=== PATIENT | female | born 1965 | race African-American/Black ===

== ENCOUNTER 2021-06-19 20:34 | Emergency (ER) | payer SELFPAY ==
[2021-06-19 22:43] LABS: Absolute Lymphocytes (CBC) 1.9 K/uL (0.7-4.9); Basophils % 0.4 % (0-1.3); Hematocrit 35.2 % (36.0-45.0); Lymphocytes % 22.7 % (15.3-44.8); RBC Red Blood Cell Count 3.51 M/uL (3.86-4.86)
[2021-06-19 22:46] LABS: Protime INR 0.95
[2021-06-19] MEDS ORDERED: MORPHINE 2 MG/ML SYR ONE ×2 (22:46→23:17)
[2021-06-19] MEDS ORDERED: NA CHLORIDE 0.9% 1,000 ML ONE (22:46)
[2021-06-19 22:57] LABS: Albumin 4.6 g/dL (3.4-5.0); Bilirubin Direct 0.2 mg/dL (0-0.2); Bilirubin Total 0.4 mg/dL (0.2-1.0); Potassium 4.1 mmol/L (3.5-5.1); Protein, Total 9.5 g/dL (6.4-8.2)
[2021-06-19 23:12] LABS: Urine Blood Trace-intact (Negative); Urine Glucose Negative (Negative); Urine Protein Negative (Negative); Urine Specific Gravity 1.015 (1.005-1.030)
[2021-06-19 23:49] LABS: Urine Specific Gravity/Preg 1.015 (1.005-1.030)
[2021-06-20 00:03] LABS: Calcium Oxalate Crystals- Ur MODERATE (NONE SEEN); Urine Bacteria LOADED /HPF (<20); Urine Mucus 1+ /HPF (NONE SEEN)
[2021-06-20] MEDS ORDERED: ONDANSETRON 4 MG/2 ML VIAL ONE (00:18)
--- NOTE | 2021-06-20 00:45 | ER ---
Nurse's Notes [facility] Name: Nanci Michelle Age: 56 yrs Sex: Female : 1965 Arrival Date: 06/19/2021 Time: 20:35 Bed 13 Private MD: Diagnosis: Abdominal pain, unspecified;UTI/ Urinary tract infection, site not specified Presentation: 06/19 21:09 Chief complaint: Patient states: Abdominal pain, abdominal swelling, back pain, kg difficulty urinating and unable to urinate at times. x 1 month. Coronavirus screen: Vaccine status: Patient reports receiving the 1st dose of the Covid vaccine. Faustino \T\ Faustino At this time, the client does not indicate any symptoms associated with coronavirus-19. Ebola Screen: Patient negative for fever greater than or equal to 101.5 degrees Fahrenheit, and additional compatible Ebola Virus Disease symptoms Patient denies exposure to infectious person. Patient denies travel to an Ebola-affected area in the 21 days before illness onset. Initial Sepsis Screen: Does the patient meet any 2 criteria? No. Patient's initial sepsis screen is negative. Does the patient have a suspected source of infection? No. Patient's initial sepsis screen is negative. Risk Assessment: Do you want to hurt yourself or someone else? Patient reports no desire to harm self or others. Onset of symptoms is unknown. 21:09 Method Of Arrival: Wheelchair kg 21:09 Acuity: FELIX 3 kg Triage Assessment: 21:09 General: Appears uncomfortable, Behavior is calm, cooperative, appropriate for age, kg quiet. Pain: Complains of pain in back and abdomen. GI: Abdomen is distended. Historical: - Allergies: 21:13 No Known Allergies; kg - Home Meds: 21:13 None [Active]; kg - PMHx: 21:13 None; kg - PSHx: 21:13 section; kg - Immunization history:: Adult Immunizations not up to date, Client reports receiving the Faustino \T\ Faustino single-dose vaccine. Date received February 16, 2021. - Social history:: Smoking status: Patient denies any tobacco usage or history of. Patient uses alcohol, on a daily basis. Screenin:30 Abuse screen: Denies threats or abuse. Nutritional screening: No deficits noted. jb4 Tuberculosis screening: No symptoms or risk factors identified. Fall Risk None identified. Assessment: 21:30 General: Appears in no apparent distress. comfortable, Behavior is calm, cooperative, jb4 appropriate for age. Pain: Complains of pain in abdomen Pain radiates to back Pain currently is 10 out of 10 on a pain scale. Neuro: Level of Consciousness is awake, alert, obeys commands, Oriented to person, place, time, situation. Cardiovascular: Patient's skin is warm and dry. Respiratory: Airway is patent Respiratory effort is even, unlabored, Respiratory pattern is regular, symmetrical. GI: Abdomen is round distended, Bowel sounds present X 4 quads. Abdomen is tender to palpation X 4 quads. Abdomen is firm x4 quadrants Reports lower abdominal pain, upper abdominal pain. : Reports inability to void. EENT: No signs and/or symptoms were reported regarding the EENT system. Derm: Skin is intact, Skin is dry, Skin is normal, Skin temperature is warm. Musculoskeletal: Circulation, motion, and sensation intact. Range of motion: intact in all extremities. 22:30 Reassessment: Patient appears in no apparent distress at this time. Patient and/or jb4 family updated on plan of care and expected duration. Pain level reassessed. Patient is alert, oriented x 3, equal unlabored respirations, skin warm/dry/pink. 23:22 Reassessment: Patient appears in no apparent distress at this time. Patient and/or jb4 family updated on plan of care and expected duration. Pain level reassessed. Patient is alert, oriented x 3, equal unlabored respirations, skin warm/dry/pink. 23:53 Reassessment: Pt call for co nausea. Emesis bag given and LAYNE Esparza made aware. Can give dc2 Zofran 4mg ivp. When returned to room, pt had vomited 200ml greenish / yellowish contents. 06/20 01:26 Reassessment: Patient appears in no apparent distress at this time. Patient and/or jb4 family updated on plan of care and expected duration. Pain level reassessed. Patient is alert, oriented x 3, equal unlabored respirations, skin warm/dry/pink. Vital Signs: 06/19 21:09 BP 119 / 106; Pulse 114; Resp 20; Temp 97.9(TE); Pulse Ox 98% ; Weight 54.43 kg (R); kg Height 4 ft. 11 in. (149.86 cm); Pain 10/10; 23:15 BP 153 / 103; Pulse 95; Resp 16; Pulse Ox 100% on R/A; jb4 06/20 00:30 BP 142 / 105; Pulse 89; Resp 16; Pulse Ox 100% on R/A; jb4 01:00 BP 137 / 103; Pulse 86; Resp 16; Pulse Ox 100% on R/A; jb4 06/19 21:09 Body Mass Index 24.24 (54.43 kg, 149.86 cm) kg ED Course: 06/19 20:35 Patient arrived in ED. bp1 21:13 Triage completed. kg 21:13 Arm band placed on left wrist. kg 21:30 Patient has correct armband on for positive identification. Bed in low position. Call jb4 light in reach. Side rails up X 1. Pulse ox on. NIBP on. 21:47 Benedict Esparza PA is PHCP. cp 21:47 Augustus Patel MD is Attending Physician. cp 22:18 Micah Farfan, JAKE is Primary Nurse. jb4 23:01 XRAY Chest (1 view) In Process Unspecified. EDMS 23:41 CT Abd/Pelvis - IV Contrast Only In Process Unspecified. EDMS 06/20 00:45 Kemar Avelar MD is Referral Physician. cp 01:27 No provider procedures requiring assistance completed. IV discontinued, intact, jb4 bleeding controlled, No redness/swelling at site. Pressure dressing applied. Administered Medications: 06/19 22:25 Drug: NS 0.9% 1000 ml Route: IV; Rate: 1 bolus; Site: right antecubital; jb4 23:30 Follow up: Response: No adverse reaction; IV Status: Completed infusion; IV Intake: jb4 1000ml 22:25 Drug: morphine 2 mg Route: IVP; Site: right antecubital; jb4 23:00 Drug: morphine 2 mg Route: IVP; Site: right antecubital; jb4 23:30 Follow up: Response: No adverse reaction; Pain is decreased; RASS: Alert and Calm (0) jb4 06/20 00:04 Drug: Zofran (Ondansetron) 4 mg Route: IVP; Site: right antecubital; dc2 00:30 Follow up: Response: No adverse reaction 4 01:10 Drug: Rocephin (cefTRIAXone) 1 grams Route: IV; Rate: calculated rate; Site: right jb4 antecubital; 01:16 Follow up: Response: No adverse reaction; IV Status: Completed infusion jb4 Intake: 06/19 23:30 IV: 1000ml; Total: 1000ml. jb4 Outcome: 06/20 00:45 Discharge ordered by . cp 01:27 Discharged to home via wheelchair. jb4 01:27 Condition: stable 01:27 Discharge instructions given to patient, Instructed on discharge instructions, follow up and referral plans. medication usage, Demonstrated understanding of instructions, follow-up care, medications, Prescriptions given X 3. 01:30 Patient left the ED. jb4 Signatures: Dispatcher [employer] EDMS Benedict Esparza PA PA cp Bryson, James, RN RN jb4 Rere Tam Kristen, RN RN kg Mena Hoffmann RN RN dc2 Corrections: (The following items were deleted from the chart) 06/19 21:14 21:13 PSHx: None; kg kg
--- NOTE | 2021-06-20 00:45 | EDPHYS ---
Physician Documentation [facility] Name: Nanci Michelle Age: 56 yrs Sex: Female : 1965 Arrival Date: 06/19/2021 Time: 20:35 Bed 13 Private MD: ED Physician Augustus Patel HPI: 06/19 22:15 This 56 yrs old Black Female presents to ER via Wheelchair with complaints of Abdominal cp Pain, Back Pain, Abdominal Swelling. 22:15 The patient presents with abdominal pain that is diffuse, abdominal distention that is cp diffuse. Onset: The symptoms/episode began/occurred 1 month(s) ago. 22:15 The symptoms radiate to back. cp 22:15 Associated signs and symptoms: Pertinent positives: decreased urine output, Pertinent cp negatives: anorexia, blood in stools, chest pain, constipation, diarrhea, fever, vomiting. The symptoms are described as waxing/waning. Historical: - Allergies: 21:13 No Known Allergies; kg - Home Meds: 21:13 None [Active]; kg - PMHx: 21:13 None; kg - PSHx: 21:13 section; kg - Immunization history:: Adult Immunizations not up to date, Client reports receiving the Faustino \T\ Faustino single-dose vaccine. Date received February 16, 2021. - Social history:: Smoking status: Patient denies any tobacco usage or history of. Patient uses alcohol, on a daily basis. ROS: 22:25 Constitutional: Negative for body aches, chills, fever, poor PO intake. cp 22:25 Eyes: Negative for injury, pain, redness, and discharge. cp 22:25 Cardiovascular: Negative for chest pain, edema, palpitations. 22:25 Respiratory: Negative for cough, shortness of breath, wheezing. 22:25 Abdomen/GI: Positive for abdominal pain, abdominal distension. Exam: 22:30 Constitutional: The patient appears in no acute distress, alert, awake, cp non-diaphoretic, non-toxic, well developed, well nourished. 22:30 Head/Face: Normocephalic, atraumatic. cp 22:30 Eyes: Periorbital structures: appear normal, Conjunctiva: normal, no exudate, no injection, Sclera: no appreciated abnormality, Lids and lashes: appear normal, bilaterally. 22:30 ENT: External ear(s): are unremarkable, Nose: is normal, Mouth: Lips: moist, Oral mucosa: moist, Posterior pharynx: Airway: no evidence of obstruction, patent. 22:30 Chest/axilla: Inspection: normal, Palpation: is normal, no crepitus, no tenderness. 22:30 Cardiovascular: Rate: tachycardic, Rhythm: regular, Edema: is not appreciated, JVD: is not appreciated. 22:30 Respiratory: the patient does not display signs of respiratory distress, Respirations: normal, no use of accessory muscles, no retractions, labored breathing, is not present, Breath sounds: are clear throughout, no decreased breath sounds, no stridor, no wheezing. 22:30 Abdomen/GI: Inspection: distension, that is moderate, in the abdomen diffusely, Bowel sounds: active, all quadrants, Palpation: soft, in all quadrants, mild abdominal tenderness, in all quadrants, rebound tenderness, is not appreciated, involuntary guarding, is not appreciated. 22:30 Back: pain, that is mild, ROM is normal, CVA tenderness, is absent. 22:30 Neuro: Orientation: to person, place \T\ time. Mentation: is normal, Motor: moves all fours, strength is normal. Vital Signs: 21:09 BP 119 / 106; Pulse 114; Resp 20; Temp 97.9(TE); Pulse Ox 98% ; Weight 54.43 kg (R); kg Height 4 ft. 11 in. (149.86 cm); Pain 10/10; 23:15 BP 153 / 103; Pulse 95; Resp 16; Pulse Ox 100% on R/A; jb4 06/20 00:30 BP 142 / 105; Pulse 89; Resp 16; Pulse Ox 100% on R/A; jb4 01:00 BP 137 / 103; Pulse 86; Resp 16; Pulse Ox 100% on R/A; jb4 06/19 21:09 Body Mass Index 24.24 (54.43 kg, 149.86 cm) kg MDM: 06/19 21:58 Patient medically screened. cp 23:00 Differential diagnosis: appendicitis, bowel obstruction, cholecystitis, Cholelithiasis, cp non-specific abd pain, pancreatitis, Peptic Ulcer Disease, Perf. Duodenal Ulcer, Perf. Gastric Ulcer, urinary tract infection. 06/20 00:45 Data reviewed: vital signs, nurses notes, lab test result(s), radiologic studies, CT cp scan. 00:45 Counseling: I had a detailed discussion with the patient and/or guardian regarding: the cp historical points, exam findings, and any diagnostic results supporting the discharge/admit diagnosis, lab results, radiology results, the need for outpatient follow up, a family practitioner, a mark up designer, to return to the emergency department if symptoms worsen or persist or if there are any questions or concerns that arise at home. Response to treatment: the patient's symptoms have markedly improved after treatment, and as a result, I will discharge patient. Special discussion: Based on the patient's Hx, exam, and Dx evaluation, there is no indication for emergent surgery or inpatient Tx. It is understood by the patient/guardian that if the Sx's persist or worsen they need to return immediately for re-evaluation. 06/19 22:08 Order name: Basic Metabolic Panel; Complete Time: 23:08 cp 06/20 00:45 Interpretation: Normal except: NA 134; GLUC 109; GFR 56. cp 06/19 22:08 Order name: CBC with Diff; Complete Time: 23:08 cp 06/20 00:46 Interpretation: Normal except: RBC 3.51; HGB 11.9; HCT 35.2; MCV 100.5. cp 06/19 22:08 Order name: Hepatic Function; Complete Time: 23:08 cp 06/20 00:46 Interpretation: Normal except: AST 39; TP 9.5; GLOB 4.9; A/G 0.9. cp 06/19 22:08 Order name: Lipase; Complete Time: 23:08 cp 06/19 22:08 Order name: PT-INR; Complete Time: 23:08 cp 06/19 22:08 Order name: Ptt, Activated; Complete Time: 23:08 cp 06/19 22:08 Order name: XRAY Chest (1 view) cp 06/19 22:08 Order name: CT Abd/Pelvis - IV Contrast Only cp 06/19 22:08 Order name: Urine Microscopic Only; Complete Time: 00:45 cp 06/20 00:46 Interpretation: Normal except: UWBC 10-20; URBC 5-10; UBACT LOADED; SQEPI 5-10; CAOX cp MODERATE. 06/19 23:12 Order name: Urine Dipstick-Ancillary; Complete Time: 00:45 EDMS 06/20 00:46 Interpretation: Normal except: UKET 1+; UBLD Trace-intact; U NIT Positive; UESTR Trace. cp 06/19 23:13 Order name: Urine --Ancillary (enter results); Complete Time: 00:45 tt3 06/20 00:07 Order name: Urine Culture EDMS 06/19 22:08 Order name: IV Saline Lock; Complete Time: 22:26 cp 06/19 22:08 Order name: Labs collected and sent; Complete Time: 22:26 cp 06/19 22:08 Order name: Bladder Scanner: pre and post void; Complete Time: 23:24 cp 06/19 22:08 Order name: Urine Dipstick-Ancillary (obtain specimen); Complete Time: 23:13 cp 06/19 22:08 Order name: Urine Test (obtain specimen); Complete Time: 23:13 cp Administered Medications: 06/19 22:25 Drug: NS 0.9% 1000 ml Route: IV; Rate: 1 bolus; Site: right antecubital; 4 23:30 Follow up: Response: No adverse reaction; IV Status: Completed infusion; IV Intake: jb4 1000ml 22:25 Drug: morphine 2 mg Route: IVP; Site: right antecubital; jb4 23:00 Drug: morphine 2 mg Route: IVP; Site: right antecubital; jb4 23:30 Follow up: Response: No adverse reaction; Pain is decreased; RASS: Alert and Calm (0) [facility] 06/20 00:04 Drug: Zofran (Ondansetron) 4 mg Route: IVP; Site: right antecubital; wa2 00:30 Follow up: Response: No adverse reaction [facility] 01:10 Drug: Rocephin (cefTRIAXone) 1 grams Route: IV; Rate: calculated rate; Site: right [facility] antecubital; 01:16 Follow up: Response: No adverse reaction; IV Status: Completed infusion [facility] Disposition: 05:07 Co-signature as Attending Physician, Augustus Patel MD. [email or web address] Disposition Summary: 06/20/21 00:45 Discharge Ordered Location: Home cp Problem: new cp Symptoms: have improved cp Condition: Stable cp Diagnosis - Abdominal pain, unspecified cp - UTI/ Urinary tract infection, site not specified cp Followup: cp - With: Valentino, Kemar, MD - When: 2 - 3 days - Reason: Recheck today's complaints Discharge Instructions: - Discharge Summary Sheet em - Abdominal Pain, Adult cp - Urinary Tract Infection, Adult cp Forms: - Family Work Release em - Medication Reconciliation Form cp - Thank You Letter cp - Antibiotic Education cp - Prescription Opioid Use cp Prescriptions: - dicyclomine 20 mg Oral Tablet - take 1 tablet by ORAL route 4 times per day; 30 tablet; Refills: 0, Product cp Selection Permitted - Zofran 4 mg Oral Tablet - take 1 tablet by ORAL route every 12 hours As needed; 20 tablet; Refills: 0, cp Product Selection Permitted - Bactrim DS 800-160 mg Oral Tablet - take 1 tablet by ORAL route every 12 hours for 7 days; 14 tablet; Refills: 0, cp Product Selection Permitted Signatures: Dispatcher [employer] EDMS Benedict Esparza PA PA cp Micah Farfan RN RN jb4 Augustus Patel MD MD [email or web address] Chiara Thompson RN RN kg Mena Hoffmann RN RN dc2 Corrections: (The following items were deleted from the chart) 06/19 21:14 21:13 PSHx: None; kg kg
[2021-06-20] MEDS ORDERED: CEFTRIAXONE/SWI 1gm 1 GM/10 ML SYR ONE (01:28)
[2021-06-20 03:50] VITALS: TEMP 97.9
[2021-06-20 03:51] VITALS: O2SAT 100
[2021-06-20 03:54] VITALS: BP 137/103
--- NOTE | 2021-06-20 07:39 | RAD REPORT ---
EXAM DESCRIPTION: [place] Single View06/19/2021 11:01 pm CLINICAL HISTORY: Abdominal pain COMPARISON: none FINDINGS: The lungs appear clear of acute infiltrate. The heart is normal size. Old rib fractures IMPRESSION: No acute abnormalities displayed
--- NOTE | 2021-06-20 19:12 | RAD REPORT ---
EXAM DESCRIPTION: CT - Abdomen Pelvis W Contrast - 06/20/2021 6:44 am CLINICAL HISTORY: The patient is 56 years old and is Female; Abd pain;Abdominal distention TECHNIQUE: Axial computed tomography images of the abdomen and pelvis with intravenous contrast. S agittal and coronal reformatted images were created and reviewed. This CT exam was performed using one or more of the following dose reduction techniques: automated exposure control, adjustment of t he mA and/or kV according to patient size, and/or use of iterative reconstruction technique. COMPARISON: No relevant prior studies available. FINDINGS: Lung bases: Unremarkable. No mass. No consolidation. ABDOMEN: Liver: Unremarkable. No mass. Gallbladder and bile ducts: Unremarkable. No calcified stones. No ductal dilation. Pancreas: Unremarkable. No mass. No ductal dilation. Spleen: Unremarkable. No splenomegaly. Adrenals: Unremarkable. No mass. Kidneys and ureters: 7 mm low-density lesion in the right kidney which is too small to fully maria g acterize but likely represents a cyst. ACR White Paper guidelines (Herbubba, et al. JACR 2018; 15(2):264 -273) suggest no follow-up is necessary. Stomach and bowel: Unremarkable. No obstruction. No mucosal thickening. PELVIS: Appendix: No findings to suggest acute appendicitis. Bladder: Taylor catheter in the bladder. Reproductive: Unremarkable as visualized. ABDOMEN and PELVIS: Intraperitoneal space: Clips/metallic densities in the pelvis which may be related to tubal ligat ion. Correlate with surgical history. No free air. No significant fluid collection. Bones/joints: No acute fracture. No dislocation. Soft tissues: Unremarkable. Vasculature: Unremarkable. No abdominal aortic aneurysm. Lymph nodes: Unremarkable. No enlarged lymph nodes. IMPRESSION: No acute findings in the abdomen or pelvis. Electronically signed by: Cory Chilel MD 06/20/2021 12:13 AM CDT Due to temporary technical issues with the PACS/Fluency reporting system, reports are being signed by the in house radiologists without review as a courtesy to insure prompt reporting. The interpreting radiologist is fully responsible for the content of the report.
== END 2021-06-20 01:30 | disposition home or self-care (01) ==
LOC: ER 20:34
DX: N39.0 Urinary tract infection, site not specified (principal)
CPT/HCPCS: 36415; 71045; 74177; 80048; 80076; 81003; 81015; 81025; 83690; 85025; 85610; 85730; 87077; 87086; 87088; 87186; 96361; 96374; 96375; 99284; J0696; J2270; J7030; Q9967

== ENCOUNTER 2025-01-04 20:31 | Emergency (ER) | payer SELFPAY ==
--- OUTSIDE RECORDS SUMMARY | 2025-01-04 20:34 | XMS REPORT | Continuity of Care Document ---
Author Name Unknown Address [address] [facility] [address] [place] [address] [facility] Address [address] [facility] [facility] [address] [place] [address] Care Team Providers Care Design Assistant Name Role Phone LJ SHELDON Primary Care Physician Unavailab RENEE Carlin Attending Clinician Unavailable NICOLE Attending Clinician Unavailable DR LJ SHELDON Attending Clinician Unavailab laura [phone] Attending Clinician Unavailable Lisa Boykin DO Attending Clinician [phone] LISA BOYKIN Attending Clinician Unavailable LISA BOYKIN Attending Clinician Unavailable WAI URBINA Attending Clinician Unavailable PATRIZIA ARMENTA Attending Clinician UnavailNADINE Calvillo Attending Clinician Unavailable YENNY ALCANTARA Attending Clinician Unavailable NICOLE Admitting Clinician Unavailable DR LJ SHELDON Admitting Clinician Unavailab le Payers Payer Name Policy Type Policy Number Effective Date Expirati on Date Source Problems Condition Name Condition Details Condition Category Status Onset Date Resolution Date Last Treatment Date Treating Clinician Comments Source History of adenomatou s polyp of colon History of Adenomatou s Polyp of Colon Problem Active 2022-09 0-15 00:00: 00 [facility] Moderate major depression Moderate Major Depression Problem Active 06-09 00:00: 00 [facility] Generalize d anxiety disorder Generalize d Anxiety Disorder Problem Active 06-09 00:00: 00 [facility] Alcohol abuse Alcohol Abuse Problem Active 05-28 [facility]:00: [facility] Allergies, Adverse Reactions, Alerts Allergy Name Allergy Type Status Severity Reaction(s) Onset Date Inactive Date Treating Clinician Comments Source No Known Drug Allergie s MA Active UNKNOWN [facility] NO KNOWN ALLERGIE S Drug Class Active [facility] Social History Social Habit Start Date Stop Date Quantity Comments Source Exposure to SARS-CoV-2 (event) Not sure [facility] Sex Assigned At 1965 00:00:00 1965 00:00:00 [facility] Smoking Status Start Date Stop Date Source Never Smoker [facility] [employer] [facility] Unknown if ever smoked Medications Ordered Medication Name Filled Medication Name Start Date Stop Date Current Medication? Ordering Clinician Indication Dosage Frequency Signature (SIG) Comments Components Source iopamidol (ISOVUE 370-500 mL) injection 100 mL 06-20 20:12: 00 06-20 20:12 :00 No [id number] 100mL 100 mL, Intravenou s, ONCE, 1 dose, On Wed06/20/21 at 1530, Routine [facility] ondansetron (ZOFRAN (PF)) injection 4 mg 06-20 19:00: 00 06-20 18:18 :00 No 4mg 4 mg, Slow IV Push, ONCE, 1 dose, On Wed06/20/21 at 1400, GAYLA [facility] NaCl 0.9% (NS) bolus infusion 500 mL 06-20 19:00: 00 06-20 19:58 :00 No 500mL at 999 mL/hr, 500 mL, IV Piggyback, ONCE, 1 dose, On Wed06/20/21 at 1400, STAT [facility] omeprazole 20 mg capsule,del ayed release Take 1 capsule every day by oral route for 30 days. omeprazole 20 mg capsule,del ayed release Take 1 capsule every day by oral route for 30 days. No 1capsul e(s) Q1D omeprazole 20 mg capsule,de layed release Take 1 capsule every day by oral route for 30 days. [facility] omeprazole 20 mg capsule,del ayed release Take 1 capsule every day by oral route for 30 days. omeprazole 20 mg capsule,del ayed release Take 1 capsule every day by oral route for 30 days. No 1capsul e(s) Q1D omeprazole 20 mg capsule,de layed release Take 1 capsule every day by oral route for 30 days. [facility] Remeron 30 mg tablet Take 1 tablet every day by oral route at bedtime for 30 days. Remeron 30 mg tablet Take 1 tablet every day by oral route at bedtime for 30 days. No 1 Q1D Remeron 30 mg tablet Take 1 tablet every day by oral route at bedtime for 30 days. [facility] omeprazole 20 mg capsule,del ayed release Take 1 capsule every day by oral route for 30 days. omeprazole 20 mg capsule,del ayed release Take 1 capsule every day by oral route for 30 days. No 1capsul e(s) Q1D omeprazole 20 mg capsule,de layed release Take 1 capsule every day by oral route for 30 days. [facility] Remeron 30 mg tablet Take 1 tablet every day by oral route at bedtime for 30 days. Remeron 30 mg tablet Take 1 tablet every day by oral route at bedtime for 30 days. No 1 Q1D Remeron 30 mg tablet Take 1 tablet every day by oral route at bedtime for 30 days. [facility] mirtazapine 30 mg tablet TAKE 1 TABLET BY MOUTH EVERY DAY AT BEDTIME mirtazapine 30 mg tablet TAKE 1 TABLET BY MOUTH EVERY DAY AT BEDTIME No mirtazapin e 30 mg tablet TAKE 1 TABLET BY MOUTH EVERY DAY AT BEDTIME [facility] omeprazole 20 mg capsule,del ayed release TAKE 1 CAPSULE BY MOUTH EVERY DAY omeprazole 20 mg capsule,del ayed release TAKE 1 CAPSULE BY MOUTH EVERY DAY No omeprazole 20 mg capsule,de layed release TAKE 1 CAPSULE BY MOUTH EVERY DAY [facility] mirtazapine 30 mg tablet TAKE 1 TABLET BY MOUTH EVERY DAY AT BEDTIME mirtazapine 30 mg tablet TAKE 1 TABLET BY MOUTH EVERY DAY AT BEDTIME No mirtazapin e 30 mg tablet TAKE 1 TABLET BY MOUTH EVERY DAY AT BEDTIME [facility] omeprazole 20 mg capsule,del ayed release TAKE 1 CAPSULE BY MOUTH EVERY DAY omeprazole 20 mg capsule,del ayed release TAKE 1 CAPSULE BY MOUTH EVERY DAY No omeprazole 20 mg capsule,de layed release TAKE 1 CAPSULE BY MOUTH EVERY DAY [facility] Vital Signs Vital Name Observation Time Observation Value Comments S ource Body Weight 2023-07-29 00:00:00 108.2 [lb_av] [facility] BMI (Body Mass Index) 2023-07-29 00:00:00 21.9 kg/m2 Gray [facility] BP Systolic 2023-07-29 00:00:00 152 mm[Hg] Troy loyd [facility] BP Diastolic 2023-07-29 00:00:00 94 mm[Hg] [facility] Height 2023-07-29 00:00:00 59 [in_i] [facility] BP Diastolic 2023-07-22 00:00:00 99 mm[Hg] [facility]a [facility] BMI (Body Mass Index) 2023-07-22 00:00:00 21.4 kg/m2 [facility] Body Weight 2023-07-22 00:00:00 106 [lb_av] [facility] deborahrda [facility] Height 2023-07-22 00:00:00 59 [in_i] [facility] BP Systolic 2023-07-22 00:00:00 184 mm[Hg] Woodrow harp [facility] Body Height 2023-06-30 12:29:00 149.8600 cm Body Weight 2023-06-30 12:29:00 44.36 kg Body Mass Index 2023-06-30 12:29:00 19.75 kg/m2 Oxygen Saturation 2023-06-30 12:20:00 98 % Heart Rate 2023-06-30 12:20:00 73.0 /min Respiratory Rate 2023-06-30 12:20:00 20 /min Body Temperature 2023-06-30 12:20:00 36.7 Amanda Systolic Blood Pressure 2023-06-30 12:20:00 112 mm[Hg] Diastolic Blood Pressure 2023-06-30 12:20:00 77 mm[Hg] Body Temperature 2023-06-30 11:15:00 36.2 Amanda Diastolic Blood Pressure 2023-06-30 09:45:00 102 mm[Hg] Oxygen Saturation 2023-06-30 09:45:00 97 % Heart Rate 2023-06-30 09:45:00 89.0 /min Respiratory Rate 2023-06-30 09:45:00 13 /min Systolic Blood Pressure 2023-06-30 09:45:00 163 mm[Hg] Body Height 2023-06-30 12:29:00 149.8600 cm Body Weight 2023-06-30 12:29:00 44.36 kg Body Mass Index 2023-06-30 12:29:00 19.75 kg/m2 Oxygen Saturation 2023-06-30 12:20:00 98 % Heart Rate 2023-06-30 12:20:00 73.0 /min Respiratory Rate 2023-06-30 12:20:00 20 /min Body Temperature 2023-06-30 12:20:00 36.7 Amanda Systolic Blood Pressure 2023-06-30 12:20:00 112 mm[Hg] Diastolic Blood Pressure 2023-06-30 12:20:00 77 mm[Hg] Body Temperature 2023-06-30 11:15:00 36.2 Amanda Diastolic Blood Pressure 2023-06-30 09:45:00 102 mm[Hg] Oxygen Saturation 2023-06-30 09:45:00 97 % Heart Rate 2023-06-30 09:45:00 89.0 /min Respiratory Rate 2023-06-30 09:45:00 13 /min Systolic Blood Pressure 2023-06-30 09:45:00 163 mm[Hg] BP Diastolic 2023-06-08 00:00:00 87 mm[Hg] Bob galindo [facility] Body Weight 2023-06-08 00:00:00 99 [lb_av] Woodrow harp [facility] BP Systolic 2023-06-08 00:00:00 151 mm[Hg] Woodrow harp [facility] BMI (Body Mass Index) 2023-06-08 00:00:00 20 kg/m2 Jacquelyn [facility] Height 2023-06-08 00:00:00 59 [in_i] Blaise roger [facility] Height 2023-05-28 00:00:00 59 [in_i] Blaise roger [facility] Body Weight 2023-05-28 00:00:00 97.8 [lb_av] Danny rosalba [facility] BP Diastolic 2023-05-28 00:00:00 77 mm[Hg] Bob galindo [facility] BMI (Body Mass Index) 2023-05-28 00:00:00 19.8 kg/m2 Jacquelyn [facility] BP Systolic 2023-05-28 00:00:00 158 mm[Hg] Woodrow harp [facility] Systolic blood pressure 2021-06-21 00:23:00 117 mm[Hg] [facility] Diastolic blood pressure 2021-06-21 00:23:00 76 mm[Hg] [facility] Heart rate 2021-06-21 00:23:00 109 /min [facility] Respiratory rate 2021-06-21 00:23:00 17 /min [facility] Oxygen saturation in Arterial blood by Pulse oximetry 2021-06-21 00:23:00 96 /min [facility] Body temperature 2021-06-20 17:25:00 36.5 Amanda [facility] Body weight 2021-06-20 17:25:00 54.432 kg [facility] Procedures Procedure Date / Time Performed Performing Clinician Source Colonoscopy 2023-06-30 00:00:[address] [facility] Esophagogastroduodenoscopy 2023-06-30 00:00:[address] [facility] COLSC FLX W/RMVL OF TUMOR PO LYP LESION SNARE TQ 2023-06-30 00:00:00 [facility] EGD TRANSORAL BIOPSY SINGLE/MULTIPLE 2023-06-30 00:00:00 [facility] LACTIC ACID WHOLE BLOOD 2021-06-20 23:52:[facility]EL[facility] W CONTRAST 2021-06-20 20:15:19 Lucretia [facility] URINALYSIS 2021-06-20 18:37:00 [facility] LIPASE 2021-06-20 18:18:00 Lucretia [facility] COMP. METABOLIC PANEL ([id number]) 2021-06-20 18:18:00 Lucretia [facility] CBC WITH DIFF 2021-06-20 18:18:00 Lucretia [facility] LACTIC ACID WHOLE BLOOD 2021-06-20 18:18:00 Lucretia [facility] CONSENT/REFUSAL FOR DIAGNOSI S AND TREATMENT 2021-06-20 17:25:08 Doctor Unassigned, [place] [facility] Plan of Care Planned Activity Planned Date Details Comments Source Diagnostic Test Pending 2023-07-29 00:00:00 cytology report, thin prep, smear or scraping, cervical or vaginal [code = cytology report, thin prep, smear or scraping, cervical or vaginal] [facility] Diagnostic Test Pending 2023-07-29 00:00:00 CBC w/ auto diff [code = CBC w/ auto diff] [facility] Diagnostic Test Pending 2023-07-29 00:00:00 CMP, serum or plasma [code = CMP, serum or plasma] [facility] Diagnostic Test Pending 2023-07-29 00:00:00 vitamin D, 25-hydroxy, total, serum [code = vitamin D, 25-hydroxy, total, serum] [facility] Diagnostic Test Pending 2023-07-29 00:00:00 lipid panel, serum [code = lipid panel, serum] [facility] Diagnostic Test Pending 2023-07-29 00:00:00 TSH + free T4, serum [code = TSH + free T4, serum] [facility] Diagnostic Test Pending 2023-07-29 00:00:00 RPR (rapid plasma reagin), serum [code = RPR (rapid plasma reagin), serum] [facility] Diagnostic Test Pending 2023-07-29 00:00:00 HBsAg (hepatitis B surface Ag), EIA, serum [code = HBsAg (hepatitis B surface Ag), EIA, serum] [facility] Diagnostic Test Pending 2023-07-29 00:00:00 HIV 1 + 2, meaningful use set [code = HIV 1 + 2, meaningful use set] [facility] Diagnostic Test Pending 2023-07-29 00:00:00 culture, urine [code = culture, urine] [facility] Diagnostic Test Pending 2023-07-29 00:00:00 urinalysis, dipstick [code = urinalysis, dipstick] [facility] Encounters Start Date/Time End Date/Time Encounter Type Admission Type Attending [facility] Care Facility Care Department Encounter ID Source 2024-02-05 23:38:00 2024-02-06 00:55:00 Emergency ER VIVIAN HACKETTMARIA R [facility] [id number] [facility] 2023-10-11 00:00:00 2023-10-11 00:00:00 Outpatient AMBREEN_FATIMAH RUST [facility] [id number] [facility] 2023-07-30 00:00:00 2023-07-30 00:00:00 Outpatient AMBREEN_FAR HANA [facility] [id number] [facility] 2023-07-29 00:00:00 2023-07-29 00:00:00 Aliya Walker NP: [address] [place] [address] , Ph. [facility] [place] [facility] - [facility] MICA SPREADER [id number] [facility] 2023-07-25 00:00:00 2023-07-25 00:00:00 Outpatient AMBREEN_FAR HANA KSHOP [facility] [id number] [facility] 2023-07-22 00:00:00 2023-07-22 00:00:00 Outpatient AMBREEN_FAR HANA KSHOP [facility] [id number] [facility] 2023-07-22 00:00:00 2023-07-22 00:00:00 Lj Sheldon MD: [address] [place] [address] , [facility]. [facility] [id number] [facility] 2023-07-10 00:00:00 2023-07-10 00:00:00 Outpatient AMBREEN_FAR HANA [facility] [id number] [facility] 2023-06-30 09:07:00 2023-06-30 12:30:00 Outpatient [id number] 2023-06-30 09:07:00 2023-06-30 12:30:00 Outpatient LJ PERRY [id number] [facility] SURGERY [id number] [facility] 2023-06-30 09:07:00 2023-06-30 09:07:00 Altered bowel function 06/30/2023 [id number] SNOMED-CT [id number] 2023-06-09 00:00:00 2023-06-09 00:00:00 Outpatient AMBREEN_FAR HANA [facility] [id number] [facility] 2023-06-09 00:00:00 2023-06-09 00:00:00 Natasha Grullon, PMHNP: [address] [place], [place] [address] , Ph. [phone] --2007 [facility] [place] [facility] [id number] [facility] 2023-06-08 00:00:00 2023-06-08 00:00:00 Outpatient AMBREEN_FAR HANA [facility] [id number] [facility] 2023-06-08 00:00:00 2023-06-08 00:00:00 Ronal Jones MD: [address] [place], [place] [address] , Ph. [phone] --[phone] [facility] [id number] [facility] 2023-05-28 00:00:00 2023-05-28 00:00:00 Outpatient AMBREEN_FAR HANA [facility] [id number] [facility] 2023-05-28 00:00:00 2023-05-28 00:00:00 Lj Sheldon MD: [place] [place] [address] , Ph. [facility] [place] [facility] - [facility] [id number] [facility] 2023-05-27 00:00:00 2023-05-27 00:00:00 Outpatient AMBREEN_FATIMAH [facility] [id number] [facility] 2023-05-24 00:00:00 2023-05-24 00:00:00 Outpatient AMBREEN_FATIMAH WILLING[facility] [id number] [facility] 2023-05-19 00:00:00 2023-05-19 00:00:00 [facility] [id number] [facility] 2021-06-20 12:26:00 2021-06-20 19:39:00 [facility] [id number] [facility] 2021-06-20 12:26:00 2021-06-20 12:26:00 Emergency X LISA BOYKIN LUCRETIAJ LUIS [facility] E[facility] [id number] [facility] 2020-08-18 15:39:00 2020-08-18 21:35:00 Emergency ER JOSERochelle WAI [facility] [id number] [facility] 2020-04-09 21:14:00 2020-04-10 02:44:00 Emergency ER PATRIZIA ARMENTA [facility] [id number] [facility] 2017-03-26 09:21:00 2017-03-26 14:20:00 Emergency ER NADINE DUMONT [facility] [id number] [facility] 2012-03-30 01:28:00 2012-03-30 04:15:00 Emergency ER KAMILAHDANNYYENNY [facility] [id number] [facility] Results Test Description Test Time Test Comments Results Result Co mments Source [facility] ProgramUrinalysis macro (dipstick) panel - [id number] 14:52:00* Test Item Value Reference Range Interpretation Comme nts Leukocytes (test code = Leukocytes) neg Nitrite (test code = Nitrite) neg Urobilinogen (test code = Urobilinogen) 0.2 Protein (test code = Protein) NEG pH (test code = pH) 6.0 Blood (test code = Blood) NEG Specific [place] (test code = Specific [place]) 1.020 Ketone (test code = Ketone) NEG Bilirubin (test code = Bilirubin) NEG Glucose (test code = Glucose) NEG [facility] - Serum or [id number] 00:00:00* Test Item Value Reference Range Interpretation Comme nts Thyrotropin [Units/volume] i n Serum or Plasma by Detection limit <= 0.005 mIU/L (test code = 15069-9) 4.710 uIU/mL 0.450-4.500 H Thyroxine (T4) free [Mass/volume] in Serum or Plasma (test code = 3024-7) 0.91 NG/dL 0.82-1.77 [facility] Program[facility] W Auto Differential panel - Blood 2023-05-29 00:00:00* Test Item Value Reference Range Interpretation Comme nts Leukocytes [#/volume] in Blo od by Automated count (test code = 6690-2) 7.1 x10e3/uL 3.4-10.8 Erythrocytes [#/volume] in Blood by Automated count (test code = 789-8) 3.79 x10e6/uL 3.77-5.28 Hemoglobin [Mass/volume] in Blood (test code = 718-7) 12.0 g/dL 11.1-15.9 Hematocrit [Volume Fraction] of Blood by Automated count (test code = 4544-3) 36.1 % 34.0-46.6 Erythrocyte mean corpuscular volume [Entitic volume] by Automated count (test code = 787-2) 95 fL 79-97 Erythrocyte mean corpuscular hemoglobin [Entitic mass] by Automated count (test code = 785-6) 31.7 pg 26.6-33.0 Erythrocyte mean corpuscular hemoglobin concentration [Mass/volume] by Automated count (test code = 786-4) 33.2 g/dL 31.5-35.7 Erythrocyte distribution wid th [Ratio] by Automated count (test code = 788-0) 12.7 % 11.7-15.4 Platelets [#/volume] in Bloo d by Automated count (test code = 777-3) 212 x10e3/uL 150-450 Neutrophils/100 leukocytes i n Blood by Automated count (test code = 770-8) 72 % not estab. Lymphocytes/100 leukocytes i n Blood by Automated count (test code = 736-9) 15 % not estab. Monocytes/100 leukocytes in Blood by Automated count (test code = 5905-5) 12 % not estab. Eosinophils/100 leukocytes i n Blood by Automated count (test code = 713-8) 1 % not estab. Basophils/100 leukocytes in Blood by Automated count (test code = 706-2) 0 % not estab. immature cells (test code = immature cells) cnp Neutrophils [#/volume] in Bl ood by Automated count (test code = 751-8) 5.1 x10e3/uL 1.4-7.0 Lymphocytes [#/volume] in Bl ood by Automated count (test code = 731-0) 1.1 x10e3/uL 0.7-3.1 Monocytes [#/volume] in Bloo d by Automated count (test code = 742-7) 0.8 x10e3/uL 0.1-0.9 Eosinophils [#/volume] in Bl ood by Automated count (test code = 711-2) 0.1 x10e3/uL 0.0-0.4 Basophils [#/volume] in Bloo d by Automated count (test code = 704-7) 0.0 x10e3/uL 0.0-0.2 Immature granulocytes/100 leukocytes in Blood by Automated count (test code = 02049-0) 0 % not estab. Immature granulocytes [#/volume] in Blood by Automated count (test code = 08092-9) 0.0 x10e3/uL 0.0-0.1 Nucleated erythrocytes/100 leukocytes [Ratio] in Blood by Automated count (test code = 01566-1) cnp Morphology [Interpretation] in Blood Narrative (test code = 71142-7) cnp [facility] ProgramComprehensive metabolic 2000 panel - Serum or [id number] 00:00:00* Test Item Value Reference Range Interpretation Comme nts Glucose [Mass/volume] in Ser um or Plasma (test code = 2345-7) 91 mg/dL 70-99 Urea nitrogen [Mass/volume] in Serum or Plasma (test code = 3094-0) 12 mg/dL 6-24 Creatinine [Mass/volume] in Serum or Plasma (test code = 2160-0) 0.82 mg/dL 0.57-1.00 Glomerular filtration rate/1.73 sq M.predicted [Volume Rate/Area] in Serum, Plasma or Blood by Creatinine-based formula (CKD-EPI 2020) (test code = 84330-2) 83 mL/min/1.73 >59 Urea nitrogen/Creatinine [Ma ss Ratio] in Serum or Plasma (test code = 3097-3) 15 9-23 Sodium [Moles/volume] in Ser um or Plasma (test code = 2951-2) 133 mmol/L 134-144 L Potassium [Moles/volume] in Serum or Plasma (test code = 2823-3) 3.6 mmol/L 3.5-5.2 Chloride [Moles/volume] in Serum or Plasma (test code = 2074-0) 92 mmol/L 96-106 L Carbon dioxide, total [Moles/volume] in Serum or Plasma (test code = 2027-) 23 mmol/L 20-29 Calcium [Mass/volume] in Ser um or Plasma (test code = 98919-2) 9.3 mg/dL 8.7-10.2 Protein [Mass/volume] in Ser um or Plasma (test code = 2885-2) 8.2 g/dL 6.0-8.5 Albumin [Mass/volume] in Ser um or Plasma (test code = 1751-7) 4.7 g/dL 3.8-4.9 Globulin [Mass/volume] in Serum by calculation (test code = 75101-0) 3.5 g/dL 1.5-4.5 Albumin/Globulin [Mass Ratio ] in Serum or Plasma (test code = 1759-0) 1.3 1.2-2.2 Bilirubin.total [Mass/volume ] in Serum or Plasma (test code = 1974-2) 0.2 mg/dL 0.0-1.2 Alkaline phosphatase [Enzymatic activity/volume] in Serum or Plasma (test code = 6768-6) 69 IU/L 44-121 Aspartate aminotransferase [Enzymatic activity/volume] in Serum or Plasma (test code = 1920-8) 40 IU/L 0-40 Alanine aminotransferase [Enzymatic activity/volume] in Serum or Plasma (test code = 1742-6) 18 IU/L 0-[address] [facility] [id number] 00:03:42* Test Item Value Reference Range Interpretation Comme nts LACTIC ACID (test code = 8356543067) 3.42 mmol/L 0.50-2.20 H Lab Interpretation (test cod e = 07319-8) Abnormal [facility] (38657)2021-06-20 19:03:17* Test Item Value Reference Range Interpretation Comme nts NA (test code = 7642865076) 132 mmol/L 135-145 L K (test code = 1399920262) 3.5 mmol/L 3.5-5.0 CL (test code = 8876399995) 96 mmol/L 98-108 L CO2 TOTAL (test code = 3656164652) 28 mmol/L 23-31 AGAP (test code = 2739405140) 2-16 BUN (test code = 0325914850) 10 mg/dL 7-23 GLUCOSE (test code = 2718946998) 91 mg/dL 70-110 CREATININE (test code = 6765551921) 0.74 mg/dL 0.50-1.04 TOTAL BILI (test code = 1623363294) 0.4 mg/dL 0.1-1.1 CALCIUM (test code = 3568735409) 8.6 mg/dL 8.6-10.6 T PROTEIN (test code = 1524192580) 7.5 g/dL 6.3-8.2 ALBUMIN (test code = 2927009994) 4.2 g/dL 3.5-5.0 ALK PHOS (test code = 2347843753) 60 U/L 34-122 ALTv (test code = 1742-6) 20 U/L 5-35 AST(SGOT) (test code = 6852527233) 32 U/L 13-40 eGFR (test code = 3784960092) mL/min/1.73m2 NIURKA (test code = NIURKA) Association of Glomerular Filtration Rate (GFR) and Staging of Kidney Disease* + --+ --+ ------+| GFR (mL/min/1.73 m2) ?| With Kidney Damage ?| ?Without Kidney Damage+ --------+ --------+ +| ?>90 ?| ?Stage one ?| ? Normal ?+ ---+ ---+ -------+| ?60-89 ?| ?Stage two ?| ? Decreased GFR ? + --+ --+ ------+| ?30-59 ?| ?Stage three ?| ? Stage three ? + --+ --+ ------+| ?15-29 ?| ?Stage four ? | ? Stage four ?+ ---+ ---+ -------+| ?<15 (or dialysis) ? ?| ?Stage five ? | ? Stage five ?+ ---+ ---+ -------+ *Each stage assumes the associated GFR level has been in effect for at least three months. ?Stages 1 to 5, with or without kidney disease, indicate chronic kidney disease. Notes: Determination of stages one and two (with eGFR >59mL/min/1.73 m2) requires estimation of kidney damage for at least three months as defined by structural or functional abnormalities of the kidney, manifested by either:Pathological abnormalities or Markers of kidney damage (including abnormalities in the composition of the blood or urine or abnormalities in imaging tests). Lab Interpretation (test code = 23783-9) [id number]03:17* Test Item Value Reference Range Interpretation Comme nts LIPASE (test code = 1514390499) 101 U/L 0-220 Lab Interpretation (test cod e = 58444-4) Normal [facility] WITH [id number] 18:53:49* Test Item Value Reference Range Interpretation Comme nts WBC (test code = 6690-2) See_Comment [Automated REES46] The system which generated this result transmitted reference range: 4.30 - 11.10 10*3/?L. The reference range was not used to interpret this result as normal/abnormal. RBC (test code = 789-8) See_Comment L [Automated messa ge] The system which generated this result transmitted reference range: 3.93 - 5.25 10*6/?L. The reference range was not used to interpret this result as normal/abnormal. HGB (test code = 718-7) 10.1 g/dL 11.6-15.0 L HCT (test code = 4544-3) 30.3 % 35.7-45.2 L MCV (test code = 787-2) 101.3 fL 80.6-95.5 H MCH (test code = 785-6) 33.8 pg 25.9-32.8 H MCHC (test code = 786-4) 33.3 g/dL 31.6-35.1 RDW-SD (test code = 07726-0) 48.9 fL 39.0-49.9 RDW-CV (test code = 788-0) 13.1 % 12.0-15.5 PLT (test code = 777-3) See_Comment [Automated messa ge] The system which generated this result transmitted reference range: 166 - 358 10*3/?L. The reference range was not used to interpret this result as normal/abnormal. MPV (test code = 09703-4) 10.0 fL 9.5-12.9 NRBC/100 WBC (test code = 5971729461) See_Comment [Automated Onfido ssage] The system which generated this result transmitted reference range: 0.0 - 10.0 /100 WBCs. The reference range was not used to interpret this result as normal/abnormal. NRBC x10^3 (test code = 5233735947) <0.01 See_Comment [Automated messa ge] The system which generated this result transmitted reference range: 10*3/?L. The reference range was not used to interpret this result as normal/abnormal. GRAN MAT (NEUT) % (test code = 770-8) 78.3 % IMM GRAN % (test code = 7481443469) 0.40 % LYMPH % (test code = 736-9) 11.3 % MONO % (test code = 5905-5) 9.4 % EOS % (test code = 713-8) 0.4 % BASO % (test code = 706-2) 0.2 % GRAN MAT x10^3(ANC) (test code = 4925256310) 7.10 10*3/uL 1.88-7.09 H IMM GRAN x10^3 (test code = 3215632238) 0.04 10*3/uL 0.00-0.06 LYMPH x10^3 (test code = 731-0) 1.03 10*3/uL 1.32-3.29 L MONO x10^3 (test code = 742-7) 0.85 10*3/uL 0.33-0.92 EOS x10^3 (test code = 711-2) 0.04 10*3/uL 0.03-0.39 BASO x10^3 (test code = 704-7) <0.03 0.01-0.07 Lab Interpretation (test code = 54541-1) [facility]normal [facility] Whole [id number] 18:31:11* Test Item Value Reference Range Interpretation Comme nts LACTIC ACID (test code = 9937101739) 3.26 mmol/L 0.50-2.20 H Lab Interpretation (test cod e = 76707-1) Abnormal [facility]"
[2025-01-04 21:54] LABS: Absolute Lymphocytes (CBC) 0.9 K/uL (0.7-4.9); Absolute Monocytes 0.7 K/uL (0.1-1.3); Absolute Neutrophil 3.2 K/uL (1.8-8.0); Basophils % 0.7 % (0-1.3); Eosinophils % 0.9 % (0-4.4); Hematocrit 30.3 % (36.0-45.0); Hemoglobin 10.5 g/dL (12.0-15.0); Lymphocytes % 18.1 % (15.3-44.8); MCH 31.8 pg (27.0-35.0); MCHC 34.8 g/dL (32.0-36.0); MCV 91.4 fL (80-100); MPV 7.5 fL (7.6-11.3); Monocytes % 13.9 % (3.3-12.3); Neutrophils % 66.4 % (41.7-73.7); Nucleated Red Blood Cells % 0.1 % (0-0); Platelets 157 thou/uL (152-406); RBC Red Blood Cell Count 3.32 M/uL (3.86-4.86); Red Cell Distribution Width 13.5 % (12.1-15.2)
[2025-01-04 21:57] LABS: Specific Gravity 1.005 (1.005-1.030); Sqamous Epithelial <5 /HPF (None Seen); Urine Bacteria <20 /HPF (<20); Urine Bilirubin NEGATIVE (Negative); Urine Blood Trace (Negative); Urine Clarity Turbid (Clear); Urine Color Colorless (Yellow); Urine Crystals Unidentified Few /HPF (None Seen); Urine Culture Reflex Order NOT NEEDED; Urine Glucose NEGATIVE (Negative); Urine Ketones NEGATIVE (Negative); Urine Microscopic Reflex YN ORDER UMIC; Urine Nitrite NEGATIVE (Negative); Urine Protein NEGATIVE (Negative); Urine RBC <5 /HPF (None Seen); Urine Urobilinogen Normal (Normal); Urine WBC <5 /HPF (<5)
[2025-01-04 22:07] LABS: Albumin 3.3 g/dL (3.4-5.0); Albumin/Globulin Ratio 0.8 (1.1-1.8); Anion Gap 14.4 mEq/L (5.0-15.0); Bilirubin Total 0.2 mg/dL (0.2-1.0); Globulin 4.2 g/dL (2.3-3.5); Potassium 3.4 mEq/L (3.5-5.1); Protein, Total 7.5 g/dL (6.4-8.2); Troponin High Sensitivity 20.5 pg/mL (<58.9)
--- NOTE | 2025-01-05 01:45 | ER ---
Nurse's Notes [facility] Name: Nanci Michelle Age: 59 yrs Sex: Female : 1965 Arrival Date: 01/04/2025 Time: 20:31 Bed 16 Private MD: Diagnosis: Constipation, abdominal pain Presentation: 01/04 21:21 Chief complaint: Patient states: BACK AND STOMACH PAIN X1 MONTH. Coronavirus screen: At dd2 this time, the client does not indicate any symptoms associated with coronavirus-19. Ebola Screen: No symptoms or risks identified at this time. Initial Sepsis Screen: Does the patient meet any 2 criteria? No. Patient's initial sepsis screen is negative. Does the patient have a suspected source of infection? No. Patient's initial sepsis screen is negative. Risk Assessment: Do you want to hurt yourself or someone else? Patient reports no desire to harm self or others. Onset of symptoms is unknown. 21:21 Method Of Arrival: Ambulatory dd2 21:21 Acuity: FELIX 3 dd2 Triage Assessment: 21:22 General: Appears in no apparent distress. uncomfortable, Behavior is calm, cooperative, dd2 appropriate for age. Pain: Complains of pain in low back area and abdomen Pain does not radiate. Pain currently is 7 out of 10 on a pain scale. at worst was 10 out of 10 on a pain scale. Quality of pain is described as aching, crampy. EENT: No deficits noted. No signs and/or symptoms were reported regarding the EENT system. Neuro: Snowden Agitation-Sedation Scale (RASS): 0 - Alert and Calm Level of Consciousness is awake, alert, obeys commands, Oriented to person, place, time, situation, Appropriate for age. Cardiovascular: Denies chest pain, JVD is absent Patient's skin is warm and dry. Respiratory: Airway is patent Respiratory effort is even, unlabored, Respiratory pattern is regular, symmetrical, Breath sounds are clear bilaterally. GI: Abdomen is round distended, Bowel sounds present X 4 quads. hypoactive in left upper quadrant and left lower quadrant Abdomen is tender to palpation X 4 quads. Reports lower abdominal pain, upper abdominal pain, cramping. : No deficits noted. No signs and/or symptoms were reported regarding the genitourinary system. Derm: No deficits noted. No signs and/or symptoms reported regarding the dermatologic system. Skin is healthy with good turgor, Skin is dry, Skin is normal, Skin temperature is warm. Musculoskeletal: No deficits noted. Circulation, motion, and sensation intact. Range of motion: intact in all extremities. Historical: - Allergies: 21:22 No Known Allergies; dd2 - PMHx: 21:22 Hypertensive disorder; dd2 - PSHx: 21:22 section; dd2 - Immunization history:: Adult Immunizations unknown, Flu vaccine is not up to date. It has been more than one year since last vaccine. - Infectious Disease History:: Denies. - Social history:: Smoking status: Reported history of juuling and/or vaping. Screenin:52 [facility] ED Fall Risk Assessment (Adult) History of falling in the last 3 months, dd2 including since admission No falls in past 3 months (0 pts) Confusion or Disorientation No (0 pts) Intoxicated or Sedated No (0 pts) Impaired Gait No (0 pts) Mobility Assist Device Used No (0 pt) Altered Elimination No (0 pt) Score/Fall Risk Level 0 - 2 = Low Risk Oriented to surroundings, Maintained a safe environment, Educated pt \T\ family on fall prevention, incl call for assistance when getting out of bed, Assessed \T\ reinforced patient's understanding of fall precautions, Hourly rounding (assess needs \T\ fall precautionary measures) done. Abuse screen: Denies threats or abuse. Denies injuries from another. Nutritional screening: No deficits noted. Tuberculosis screening: No symptoms or risk factors identified. Assessment: 21:36 Reassessment: SEE TRIAGE ASSESSMENT FOR FULL ASSESSMENT. dd2 Vital Signs: 21:21 BP 130 / 92; Pulse 90; Resp 16; Temp 98.2; Pulse Ox 100% on R/A; Weight 53.52 kg (M); dd2 Pain 7/10; 22:30 BP 149 / 89; Pulse 92; Resp 16; Pulse Ox 100% on R/A; dd2 23:26 BP 143 / 85; Pulse 88; Resp 16; Pulse Ox 99% on R/A; dd2 04/11 00:32 BP 136 / 87; Pulse 85; Resp 16; Pulse Ox 100% on R/A; dd2 00:32 BP 138 / 82; Pulse 79; Resp 16; Temp 98.3; Pulse Ox 99% on R/A; dd2 01/04 21:21 Pain Scale: Adult dd2 Monse Coma Score: 01/04 21:36 Eye Response: spontaneous(4). Motor Response: obeys commands(6). Verbal Response: dd2 oriented(5). Total: 15. ED Course: 20:35 Patient arrived in ED. jj6 20:37 Trino Jones MD is Attending Physician. sp3 21:20 JACKLYN HELMS, RN is Primary Nurse. dd2 21:22 Triage completed. dd2 21:22 Arm band placed on right wrist. dd2 21:29 EKG done, by engineering laboratory technician. af3 21:43 Inserted saline lock: 22 gauge in left forearm, using aseptic technique. Blood oe collected. Flushed with 10 mL NS. 21:43 Lactate w/ 2H reflex if indic. Sent. oe 21:43 Troponin High Sensitivity Sent. oe 21:44 CBC with Diff Sent. oe 21:44 CMP Sent. oe 21:44 Lipase Sent. oe 21:52 Patient has correct armband on for positive identification. Bed in low position. Call dd2 light in reach. Side rails up X2. Client placed on continuous cardiac and pulse oximetry monitoring. NIBP monitoring applied. awake overnight monitor on. Door closed. Noise minimized. Warm blanket given. Pillow given. Verbal reassurance given. 21:52 No provider procedures requiring assistance completed. Patient maintains SpO2 dd2 saturation greater than 95% on room air. 22:29 CT Abd/Pelvis - IV Contrast Only In Process Unspecified. EDMS 01/05 01:57 Provided Education on: D/C INSTRUCTIONS, DIET, MEDICATION USE. dd2 01:57 IV discontinued, intact, bleeding controlled, No redness/swelling at site. Pressure dd2 dressing applied. Administered Medications: No medications were administered Medication: 01/04 21:52 VIS not applicable for this client. dd2 Outcome: 01/05 01:44 Discharge ordered by . sp3 01:57 Discharged to home via wheelchair, with family, dd2 01:57 Condition: stable 01:57 Discharge instructions given to patient, family, Instructed on discharge instructions, follow up and referral plans. medication usage, Demonstrated understanding of instructions, follow-up care, medications, 01:58 Patient left the ED. dd2 Signatures: Dispatcher [employer] EDNJ BaumannHarpreet deng Setul, MD MD sp3 Sagrario Finch jj6 Petrona Lema af3 JACKLYN HELMS RN RN dd2
--- NOTE | 2025-01-05 01:45 | EDPHYS ---
Physician Documentation [facility] Name: Nanci Michelle Age: 59 yrs Sex: Female : 1965 Arrival Date: 01/04/2025 Time: 20:31 Bed 16 Private MD: ED Physician Trino Jones HPI: 01/04 21:17 This 59 yrs old Black Female presents to ER via Unassigned with complaints of Abdominal sp3 Pain. 21:17 59-year-old female with history of hypertension, multiple C-sections in the past, tubal sp3 ligation presents to the ED with off-and-on abdominal pain and distention for the last 4 weeks. Patient states that she finally told her children who brought her into the ED. Pain extends from her abdomen into her lower back. She denies any fever, headache, shortness of breath, chest pain, syncope, near syncope, vomiting, diarrhea or any other signs or symptoms on ROS at this time.. Historical: - Allergies: 21:22 No Known Allergies; dd2 - PMHx: 21:22 Hypertensive disorder; dd2 - PSHx: 21:22 section; dd2 - Immunization history:: Adult Immunizations unknown, Flu vaccine is not up to date. It has been more than one year since last vaccine. - Infectious Disease History:: Denies. - Social history:: Smoking status: Reported history of juuling and/or vaping. ROS: 21:18 Constitutional: Negative for fever, chills, and weight loss, Eyes: Negative for injury, sp3 pain, redness, and discharge, ENT: Negative for injury, pain, and discharge, Neck: Negative for injury, pain, and swelling, Cardiovascular: Negative for chest pain, palpitations, and edema, Respiratory: Negative for shortness of breath, cough, wheezing, and pleuritic chest pain, : Negative for injury, bleeding, discharge, and swelling, MS/Extremity: Negative for injury and deformity, Skin: Negative for injury, rash, and discoloration, Neuro: Negative for headache, weakness, numbness, tingling, and seizure, Psych: Negative for depression, anxiety, suicide ideation, homicidal ideation, and hallucinations, Allergy/Immunology: Negative for hives, rash, and allergies, Endocrine: Negative for neck swelling, polydipsia, polyuria, polyphagia, and marked weight changes, 21:18 All other systems are negative, Exam: 21:18 Constitutional: This is a well developed, well nourished patient who is awake, alert, sp3 and in no acute distress. Head/Face: Normocephalic, atraumatic. Eyes: Pupils equal round and reactive to light, extra-ocular motions intact. Lids and lashes normal. Conjunctiva and sclera are non-icteric and not injected. Cornea within normal limits. Periorbital areas with no swelling, redness, or edema. Neck: Trachea midline, no thyromegaly or masses palpated, and no cervical lymphadenopathy. Supple, full range of motion without nuchal rigidity, or vertebral point tenderness. No Meningismus. Chest/axilla: Normal chest wall appearance and motion. Nontender with no deformity. No lesions are appreciated. Cardiovascular: Regular rate and rhythm with a normal S1 and S2. No gallops, murmurs, or rubs. Normal PMI, no JVD. No pulse deficits. Respiratory: Lungs have equal breath sounds bilaterally, clear to auscultation and percussion. No rales, rhonchi or wheezes noted. No increased work of breathing, no retractions or nasal flaring. Back: No spinal tenderness. No costovertebral tenderness. Full range of motion. Skin: Warm, dry with normal turgor. Normal color with no rashes, no lesions, and no evidence of cellulitis. MS/ Extremity: Pulses equal, no cyanosis. Neurovascular intact. Full, normal range of motion. Neuro: Awake and alert, GCS 15, oriented to person, place, time, and situation. Cranial nerves II-XII grossly intact. Motor strength 5/5 in all extremities. Sensory grossly intact. Cerebellar exam normal. Normal gait. Psych: Awake, alert, with orientation to person, place and time. Behavior, mood, and affect are within normal limits. 21:18 Abdomen/GI: Abdominal exam demonstrates distended abdomen without peritoneal signs, rebound or guarding with generalized abdominal pain particularly in bilateral lower quadrants., 22:07 ECG was reviewed by the Attending Physician. EKG demonstrates normal sinus rhythm at 89 sp3 bpm with normal intervals except QTc of 464, large R waves lead to incomplete bundle branch block and nonspecific diffuse ST/T changes without evidence of acute ischemia. Vital Signs: 21:21 BP 130 / 92; Pulse 90; Resp 16; Temp 98.2; Pulse Ox 100% on R/A; Weight 53.52 kg (M); dd2 Pain /; 22:30 BP 149 / 89; Pulse 92; Resp 16; Pulse Ox 100% on R/A; dd2 23:26 BP 143 / 85; Pulse 88; Resp 16; Pulse Ox 99% on R/A; dd2 01/05 00:32 BP 136 / 87; Pulse 85; Resp 16; Pulse Ox 100% on R/A; dd2 00:32 BP 138 / 82; Pulse 79; Resp 16; Temp 98.3; Pulse Ox 99% on R/A; dd2 01/04 21:21 Pain Scale: Adult dd2 Eva Coma Score: 01/04 21:36 Eye Response: spontaneous(4). Motor Response: obeys commands(6). Verbal Response: dd2 oriented(5). Total: 15. MDM: 21:05 Medical Screening Exam initiated sp3 21:19 Data reviewed: vital signs, nurses notes, old medical records, lab test result(s), EKG, sp3 radiologic studies. ED course: 59-year-old female with abdominal pain. Differential diagnosis is broad and includes bowel obstruction, ileus, other pathology including appendicitis, biliary pathology, PHYSICAL SECURITY MANAGER pathology, UTI, pyelonephritis, kidney stone, musculoskeletal, among others. Workup include CT scan of the abdomen pelvis with IV contrast, general labs, EKG and general supportive care. Will later on medications as indicated. Disposition pending workup patient course.. 01/05 01:43 ED course: Laboratory values within normal limits including lactate. CT scan on my read sp3 demonstrates constipation and extensive bowel gas. CT attending read not available due to transmission issues in the radiology department. Unknown timeframe on resolution. Patient wants to go home. I advised her that we will let her go home she is given clear contact information for us to call in case there are significant findings on her imaging. Vital signs normal on discharge.. 01/04 21:12 Order name: CBC with Diff; Complete Time: 22:23 sp3 01/04 21:12 Order name: CMP; Complete Time: 22:23 sp3 01/04 21:12 Order name: Lipase; Complete Time: 22:23 sp3 01/04 21:12 Order name: Urinalysis w/ reflexes; Complete Time: 22:23 sp3 01/04 21:12 Order name: Troponin High Sensitivity; Complete Time: 22:23 sp3 01/04 21:12 Order name: Lactate w/ 2H reflex if indic.; Complete Time: 22:23 sp3 01/04 21:12 Order name: CT Abd/Pelvis - IV Contrast Only sp3 01/04 21:12 Order name: IV Saline Lock; Complete Time: 21:43 sp3 01/04 21:12 Order name: Labs collected and sent; Complete Time: :43 sp3 01/04 21:12 Order name: EKG - Nurse/Tech; Complete Time: 21:29 sp3 Administered Medications: No medications were administered Disposition Summary: 01/05/25 01:44 Discharge Ordered Notes: Location: Home sp3 Condition: Stable sp3 Diagnosis - Constipation, abdominal pain sp3 Followup: sp3 - With: Private Physician - When: Upon discharge from the Emergency Department - Reason: Continuance of care Discharge Instructions: - Discharge Summary Sheet sp3 - Constipation, Adult sp3 Forms: - Medication Reconciliation Form sp3 - Antibiotic Education sp3 - Prescription Opioid Use sp3 - Patient Portal Instructions sp3 - Leadership Thank You Letter sp3 Signatures: Dispatcher [employer] Trino Guido MD MD sp3 JACKLYN HELMS RN RN dd2
[2025-01-05 02:19] VITALS: O2SAT 99
[2025-01-05 02:21] VITALS: BP 138/82; TEMP 98.3
--- NOTE | 2025-01-05 03:08 | RAD REPORT ---
EXAMINATION: CT Abdomen Pelvis W Contrast CLINICAL INDICATION: Female, 59 years old. Abd pain;Distention TECHNIQUE: CT abdomen and pelvis was performed, after the administration of IV contrast, as per [facility] protocol. Axial, sagittal and coronal reconstructions were obtained. One or more of the following dose reduction techniques were used: Automated exposure control, adjustment of the mA and k V according to patient size, and iterative reconstruction. Unless otherwise specified, incidental findings do not require dedicated imaging follow-up. COMPARISON: 06/19/2021 FINDINGS: LOWER CHEST: The visualized lung bases are clear. LIVER: Normal in size and contour. No focal lesion. BILIARY SYSTEM: No suspicious abnormalities. SPLEEN: Normal size. No focal lesion. PANCREAS: No mass, ductal dilation, or heath-pancreatic fluid. Coarse calcifications along the head an d body of the pancreas suggesting sequelae of chronic pancreatitis. ADRENALS: Normal; no mass. KIDNEYS: Normal size and contour. No hydronephrosis. URINARY BLADDER: Unremarkable. GASTROINTESTINAL TRACT: No evidence of free air, significant intra-abdominal free fluid, bowel obstru ction or abscess. Mild stool burden along the cecum. APPENDIX: Normal appendix. LYMPH NODES: No lymphadenopathy. MUSCULOSKELETAL: No acute or suspicious osseous abnormality. ADDITIONAL FINDINGS: Tubal occlusion devices along the bilateral adnexa.. IMPRESSION: No acute or concerning abnormalities seen in the abdomen or pelvis. Chronic findings including sequelae of chronic pancreatitis.
--- NOTE | 2025-01-05 14:14 | EKG ---
Test Date: 2025-01-04 Test Time: 21:26:37 Roller Embosser: AF MEASUREMENT RESULTS: Intervals: Rate: 89 IN: 168 QRSD: 94 QT: 382 QTc: 464 Frierson: P: 61 IN: 168 QRS: -13 T: 109 INTERPRETIVE STATEMENTS: Normal sinus rhythm Left ventricular hypertrophy with repolarization abnormality Abnormal ECG No previous ECG available for comparison Electronically Signed On 01-05-25 14:12:35 CDT by Benito Bedoya
== END 2025-01-05 01:58 | disposition home or self-care (01) ==
LOC: ER 20:31
DX: K59.00 Constipation, unspecified (principal)
CPT/HCPCS: 36415; 74177; 80053; 81001; 83605; 83690; 84484; 85025; 93005; 99284; Q9967